=== PATIENT | male | born 2000 | race Two or more races ===

== ENCOUNTER 2018-07-24 19:52 | Emergency (ER) | payer SELFPAY ==
[~2018-07-24] VITALS: Ht 172.7 cm; Wt 81.6 kg
[2018-07-24 19:56] VITALS: BP 123/70
== END 2018-07-24 23:50 | disposition left against medical advice (07) ==
LOC: ER 19:52
DX: F41.9 Anxiety disorder, unspecified (principal); Z53.21 Procedure and treatment not carried out due to patient leaving prior to being seen by health care provider